=== PATIENT | male | born 1970 | race Caucasian/White ===

== ENCOUNTER 2017-03-04 07:38 | Emergency (ER) | payer OTHER ==
[~2017-03-04] VITALS: Ht 175.3 cm; Wt 90.7 kg
[~2017-03-04 07:38] MED LIST: IBUPROFEN400 MG PO; NORCO 5-325 TA1 EACH PO; SUDAFED30 MG PO; TYLENOL325 MG
[2017-03-04] MEDS ORDERED: TIZANIDINE HCL4 MG PO (07:52)
[2017-03-04] MEDS ORDERED: METHYLPREDNISOLO4 M1 PO (07:53)
[2017-03-04] MEDS ORDERED: PERCOCET 5-3251 EACH PO (07:54)
[2017-03-04] MEDS ORDERED: GABAPENTIN100 MG PO (08:20)
== END 2017-03-04 10:47 | disposition home or self-care (01) ==
LOC: ED 07:38
DX: M54.16 Radiculopathy, lumbar region (principal); Z79.899 Other long term (current) drug therapy
CPT/HCPCS: 96372; 99282; J1100